=== PATIENT | female | born 1990 | race Caucasian/White ===

== ENCOUNTER 2023-06-01 19:17 | Emergency (ER) | payer OTHER ==
[~2023-06-01] VITALS: Ht 157.5 cm; Wt 61.7 kg
[2023-06-01 19:27] VITALS: BP_SYST 142; PULSE 114; RESP 19; TEMP 99.1; O2SAT 100
[2023-06-01 19:38] VITALS: BP_SYST 142; PULSE 114; RESP 19; TEMP 99.1; O2SAT 100
== END 2023-06-01 19:38 ==
LOC: SED 19:17
DX: Z02.89 Encounter for other administrative examinations (principal); Z79.899 Other long term (current) drug therapy
CPT/HCPCS: 99283